=== PATIENT | male | born 1995 | race Caucasian/White ===

== ENCOUNTER → 2020-07-02 10:39 | Outpatient (BNVA) | payer OTHER, SELFPAY | PROVIDERS: Family Provider Family Medicine; PCP Family Medicine; Visit Provider Nurse Practitioner | DX: Z20.828 Contact with and (suspected) exposure to other viral communicable diseases (principal); J02.9 Acute pharyngitis, unspecified | CPT/HCPCS: 87071; 87635; 87880 ==

== ENCOUNTER 2021-06-30 02:16 | Observation (INO) | payer OTHER, SELFPAY ==
[2021-06-30] VITALS (12 sets, daily range): BP systolic 102–125; BP diastolic 60–71; PULSE 85–117; RESP 14–30; TEMP 36.4–37.7; O2SAT 92–96; BMI 27.3; BMI 27.8
--- NOTE | 2021-06-30 02:29 | ED_ITS ---
HPI - General Adult General: Chief complaint: General Medical Stated complaint: Has [place] Palsy- SOB Shaking Heart Beating Fast Time Seen by Provider: 06/30/21 02:20 History of Present Illness: HPI narrative: Mr. Stephens is a 26-year-old gentleman without significant past medical history with exception of diagnosis of Crow's palsy approximately 3 weeks ago presents emerged department due to sudden onset chills, shortness of breath, nausea, vomiting. Symptoms started approximately 3 hours prior to arrival. He cannot think of specific provoking factors. Since time of onset the course has persisted and is moderate to severe in intensity. He denies similar episodes the past. He was on a 1 week course of steroids after being diagnosed most with Crow's palsy. No other significant changes in health reported. No other specific provoking, exacerbating, or alleviating factors identified as the course of symptoms has been short. Review of Systems General: Reports: 10 or more systems reviewed and unremarkable except in HPI and below Narrative: CONSTITUTIONAL: See HPI EYES - denies pain, denies loss of vision EARS - denies ear issues. NOSE - denies congestion or rhinorrhea. THROAT - denies sore throat or difficulty swallowing. CARDIOVASCULAR - denies chest pain and palpitations RESPIRATORY -see HPI GASTROINTESTINAL -see HPI GENITOURINARY - denies dysuria or urinary frequency MUSCULOSKELETAL- denies deformity or pain SKIN - denies rashes or new changed skin lesions NEUROLOGIC -see HPI HEMATOLOGIC/LYMPHATIC - denies easy bruising or lymphadenopathy. [facility] ED PFSH: Medical History (Updated 07/02/21 @ 00:02 by ) History of Crow's palsy Surgical History (Updated 06/30/21 @ 06:22 by Yo France MD) No pertinent past surgical history Family History (Updated 06/30/21 @ 06:22 by Yo France MD) Other Diabetes Denies family history of Anesthesia complication Bleeding disorder Social History (Updated 06/30/21 @ 06:22 by Yo France MD) Smoking and tobacco status: former smoker Alcohol intake: never Lives independently: Yes Household members: spouse Marital status: Current occupational status: employed History of recent travel: No Physical Exam Narrative: EXAM NARRATIVE: GENERAL/CONSTITUTIONAL -ill-appearing. No acute distress. Eyes - PERRL, no conjunctival injection ENMT - Atraumatic external nose and ears. Moist mucous membranes NECK - supple. trachea midline CARDIOVASCULAR -tachycardic rate and regular rhythm. Peripheral pulses 2+ and equal RESPIRATORY -inferior coarse to auscultation bilaterally. Continue present. No retractions or accessory muscle use. ABDOMEN/GI -mild generalized tenderness to palpation. Nondistended. No tenderness to percussion or evidence of peritonitis MSK - Extremities without obvious deformity or tenderness to palpation SKIN - Warm, Dry. No vesicles appreciated on clinical exam. NEURO - alert and appropriately oriented. strength and sensation intact. Moves all extremities equally. Facial asymmetry/facial droop that involves both the forehead, eyelid, and lower face PSYCH - Appropriate mood and affect Course ED course: - Patient was seen and evaluated by me at bedside - Patient placed on cardiac monitors, IV access obtained - Initial evaluation notable for ill appearance, bordering nontoxic. Patient is tachypneic, tachycardic, and has decreased oxygen saturation. -Fluids ordered - Labs notable for leukocytosis - Imaging notable for ED read of chest x-ray which mild haziness/asymmetry however relatively underwhelming given the degree of patient's symptoms. -IV antibiotics given once source of infection identified based on CT read at 319 at which time patient met sepsis criteria. - Upon serial reexamination after treatment the patient was somewhat improved, patient requiring supplemental oxygen via nasal cannula - Based on patient history, evaluation, labs, and imaging as interpreted the most likely cause of the patient's condition is sepsis secondary to pneumonia - The results of ED evaluation were discussed with the patient including plan for admission due to requirement for level of care not available if discharged to prevent significant worsening/deterioration. -Hospitalist service contacted and agreed to admit the patient - Patient was admitted without further deterioration or significant events. Vital Signs: Vital signs: Vital Signs Temperature 97.9 F 07/01/21 14:19 Pulse Rate 80 07/01/21 14:19 Respiratory Rate 15 07/01/21 14:19 Blood Pressure 125/75 07/01/21 14:19 Pulse Oximetry 96 07/01/21 14:19 [facility] - General Adult Medical Records: Attestation: I reviewed the patient's medical records. Lab Data: Attestation: I reviewed the patient's lab results. Labs: Lab Results 06/30/21 06/30/21 06/30/21 Range/Units 02:50 02:50 02:50 WBC 15.9 H (4.0-10.0) 10^3/ uL RBC 5.37 H (4.1-5.3) 10^6/u L Hgb 16.5 (11.7-16.6) g/dL Hct 46.2 (42.0-52.0) % MCV 86.0 (80-94) fl MCH 30.7 (28.0-34.0) pg MCHC 35.7 (30.0-36.0) g/dL RDW 13.3 (12.1-15.1) % Plt Count 233 (130-400) 10^3/c mm MPV 10.7 H (7.4-10.4) fL Neut % (Auto) 87.4 % Lymph % (Auto) 7.6 % [place] % (Auto) 3.5 % Eos % (Auto) 0.9 % Baso % (Auto) 0.3 % Neut # (Auto) 13.94 H (1.8-7.7) 10^3/u L Lymph # (Auto) 1.2 (0.8-4.8) 10^3/u L [place] # (Auto) 0.6 (0.2-0.9) 10^3/u L Eos # (Auto) 0.1 (0.0-0.8) 10^3/u L Baso # (Auto) 0.0 (0.0-0.1) 10^3/u L Nucleated RBC % (a uto) 0 % Nucleated RBCs # 0.0 /100WBC ESR (0-10) mm/hr Specimen Type Sample Site ABG pH (7.35-7.45) ABG pCO2 (35-45) mmHg ABG pO2 (80.0-100.0) mmH g ABG HCO3 (22-26) mmol/L ABG Base Excess (-2.0-2.0) mmol/ L Marvin Test Hematocrit (42-52) % O2 Delivery Device Ditching Machine Operator ID Sodium 137 (136-145) mmol/L Potassium 4.2 (3.5-5.1) mmol/L Chloride 101 (98-107) mmol/L Carbon Dioxide 24 (22-29) mmol/L Anion Gap 16.2 (5-19) BUN 12 (6-20) mg/dL Creatinine 0.7 (0.7-1.2) mg/dL GFR Calculation 135.3 H (90-130) mL/min Glucose 120 H (65-115) mg/dL Calculated Osmolal ity 285 (285-295) mOsm/k g Lactate 2.1 (0.5-2.2) mmol/L Calcium 9.3 (8.5-10.5) mg/dL Total Bilirubin 0.5 (0.15-1.2) mg/dL AST 20 (0-40) U/L ALT 44 H (0-41) U/L Alkaline Phosphata se 75 (40-130) IU/L C-Reactive Protein (0.0-4.9) mg/L Total Protein 6.7 (6.6-8.7) g/dL Albumin 3.8 (3.5-5.2) g/dL Globulin 2.9 (1.3-4.6) g/dL Procalcitonin (0-0.5) ng/mL TSH 1.35 (0.27-4.20) uIU/ mL Urine Color (Yellow) Urine Appearance (CLEAR) Urine pH (5-7) Ur Specific Gravit y (1.005-1.030) Urine Protein (Negative) Urine Glucose (UA) (Normal) Urine Ketones (Negative) Urine Blood (Negative) Urine Nitrate (Negative) Urine Bilirubin (Negative) Prot Sulfosalicyli c Acd (Negative) Urine Urobilinogen (Negative) mg/dL Ur Leukocyte Maren ase (Negative) Influenza Type A A g (Negative) Influenza Type B A g (Negative) SARS-CoV-2 Ag (Rap id) (Negative) 06/30/21 06/30/21 06/30/21 Range/Units 02:50 02:50 02:50 WBC (4.0-10.0) 10^3/ uL RBC (4.1-5.3) 10^6/u L Hgb (11.7-16.6) g/dL Hct (42.0-52.0) % MCV (80-94) fl MCH (28.0-34.0) pg MCHC (30.0-36.0) g/dL RDW (12.1-15.1) % Plt Count (130-400) 10^3/c mm MPV (7.4-10.4) fL Neut % (Auto) % Lymph % (Auto) % [place] % (Auto) % Eos % (Auto) % Baso % (Auto) % Neut # (Auto) (1.8-7.7) 10^3/u L Lymph # (Auto) (0.8-4.8) 10^3/u L [place] # (Auto) (0.2-0.9) 10^3/u L Eos # (Auto) (0.0-0.8) 10^3/u L Baso # (Auto) (0.0-0.1) 10^3/u L Nucleated RBC % (a uto) % Nucleated RBCs # /100WBC ESR 17 H (0-10) mm/hr Specimen Type Sample Site ABG pH (7.35-7.45) ABG pCO2 (35-45) mmHg ABG pO2 (80.0-100.0) mmH g ABG HCO3 (22-26) mmol/L ABG Base Excess (-2.0-2.0) mmol/ L Marvin Test Hematocrit (42-52) % O2 Delivery Device Ditching Machine Operator ID Sodium (136-145) mmol/L Potassium (3.5-5.1) mmol/L Chloride (98-107) mmol/L Carbon Dioxide (22-29) mmol/L Anion Gap (5-19) BUN (6-20) mg/dL Creatinine (0.7-1.2) mg/dL GFR Calculation (90-130) mL/min Glucose (65-115) mg/dL Calculated Osmolal ity (285-295) mOsm/k g Lactate (0.5-2.2) mmol/L Calcium (8.5-10.5) mg/dL Total Bilirubin (0.15-1.2) mg/dL AST (0-40) U/L ALT (0-41) U/L Alkaline Phosphata se (40-130) IU/L C-Reactive Protein 29.9 H (0.0-4.9) mg/L Total Protein (6.6-8.7) g/dL Albumin (3.5-5.2) g/dL Globulin (1.3-4.6) g/dL Procalcitonin 0.15 (0-0.5) ng/mL TSH (0.27-4.20) uIU/ mL Urine Color (Yellow) Urine Appearance (CLEAR) Urine pH (5-7) Ur Specific Gravit y (1.005-1.030) Urine Protein (Negative) Urine Glucose (UA) (Normal) Urine Ketones (Negative) Urine Blood (Negative) Urine Nitrate (Negative) Urine Bilirubin (Negative) Prot Sulfosalicyli c Acd (Negative) Urine Urobilinogen (Negative) mg/dL Ur Leukocyte Maren ase (Negative) Influenza Type A A g (Negative) Influenza Type B A g (Negative) SARS-CoV-2 Ag (Rap id) Negative (Negative) 06/30/21 06/30/21 06/30/21 Range/Units 03:00 03:25 03:30 WBC (4.0-10.0) 10^3/ uL RBC (4.1-5.3) 10^6/u L Hgb (11.7-16.6) g/dL Hct (42.0-52.0) % MCV (80-94) fl MCH (28.0-34.0) pg MCHC (30.0-36.0) g/dL RDW (12.1-15.1) % Plt Count (130-400) 10^3/c mm MPV (7.4-10.4) fL Neut % (Auto) % Lymph % (Auto) % [place] % (Auto) % Eos % (Auto) % Baso % (Auto) % Neut # (Auto) (1.8-7.7) 10^3/u L Lymph # (Auto) (0.8-4.8) 10^3/u L [place] # (Auto) (0.2-0.9) 10^3/u L Eos # (Auto) (0.0-0.8) 10^3/u L Baso # (Auto) (0.0-0.1) 10^3/u L Nucleated RBC % (a uto) % Nucleated RBCs # /100WBC ESR (0-10) mm/hr Specimen Type Arterial Sample Site Radial, right ABG pH 7.44 (7.35-7.45) ABG pCO2 37.8 (35-45) mmHg ABG pO2 57.6 L (80.0-100.0) mmH g ABG HCO3 25.5 (22-26) mmol/L ABG Base Excess 1.4 (-2.0-2.0) mmol/ L Marvin Test Pos Hematocrit 47.8 (42-52) % O2 Delivery Device Room air Ditching Machine Operator ID [email or web address] Sodium (136-145) mmol/L Potassium (3.5-5.1) mmol/L Chloride (98-107) mmol/L Carbon Dioxide (22-29) mmol/L Anion Gap (5-19) BUN (6-20) mg/dL Creatinine (0.7-1.2) mg/dL GFR Calculation (90-130) mL/min Glucose (65-115) mg/dL Calculated Osmolal ity (285-295) mOsm/k g Lactate (0.5-2.2) mmol/L Calcium (8.5-10.5) mg/dL Total Bilirubin (0.15-1.2) mg/dL AST (0-40) U/L ALT (0-41) U/L Alkaline Phosphata se (40-130) IU/L C-Reactive Protein (0.0-4.9) mg/L Total Protein (6.6-8.7) g/dL Albumin (3.5-5.2) g/dL Globulin (1.3-4.6) g/dL Procalcitonin (0-0.5) ng/mL TSH (0.27-4.20) uIU/ mL Urine Color Yellow (Yellow) Urine Appearance Clear (CLEAR) Urine pH 8 H (5-7) Ur Specific Gravit y 1.005 (1.005-1.030) Urine Protein Neg (Negative) Urine Glucose (UA) Norm (Normal) Urine Ketones Negative (Negative) Urine Blood Neg (Negative) Urine Nitrate Negative (Negative) Urine Bilirubin Neg (Negative) Prot Sulfosalicyli c Acd Negative (Negative) Urine Urobilinogen Norm (Negative) mg/dL Ur Leukocyte Maren ase Negative (Negative) Influenza Type A A g Negative (Negative) Influenza Type B A g Negative (Negative) SARS-CoV-2 Ag (Rap id) (Negative) Discharge Plan Discharge Admit Provider: Yo France Condition: Stable Discharge Orders: Discharge Order (Routine); Ordered 07/01/21 Ordered By: Jerod Brito Discharge Diet: Usual diet Discharge Activity: Resume usual activity Coding Level of Care Code 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
--- NOTE | 2021-06-30 02:39 | XRR_ITS ---
PROCEDURE INFORMATION: Exam: XR Chest Exam date and time: 06/30/2021 2:39 AM Age: 26 years old Clinical indication: Dyspnea and tachypnea; Additional info: Tachycardia TECHNIQUE: Imaging protocol: XR of the chest. Views: 1 view. COMPARISON: No relevant prior studies available. FINDINGS: Lungs: There is a patchy airspace opacity in the left lower lobe, consistent with pneumonia identified in CT chest. Pleural spaces: Unremarkable. No pleural effusion. No pneumothorax. Heart/Mediastinum: Unremarkable. No cardiomegaly. Bones/joints: Unremarkable. XR/XR chest 1V portable [id number] IMPRESSION: Imaging findings of pneumonia.
[2021-06-30 03:00] LABS: Basophils % 0.3 %; Eosinophils # 0.1 10^3/uL (0.0-0.8); Eosinophils % 0.9 %; Hematocrit 46.2 % (42.0-52.0); Hemoglobin 16.5 g/dL (11.7-16.6); Lymphocytes # 1.2 10^3/uL (0.8-4.8); Lymphocytes % 7.6 %; Mean Corpuscular HGB Conc 35.7 g/dL (30.0-36.0); Mean Corpuscular Hemoglobin 30.7 pg (28.0-34.0); Mean Platelet Volume 10.7 fL (7.4-10.4); Monocytes # 0.6 10^3/uL (0.2-0.9); Monocytes % 3.5 %; Neutrophils # 13.94 10^3/uL (1.8-7.7); Neutrophils % 87.4 %; Nucleated Red Blood Cells % 0 %; Platelet Count 233 10^3/cmm (130-400); Red Blood Count 5.37 10^6/uL (4.1-5.3); Red Cell Distribution Width 13.3 % (12.1-15.1); White Blood Count 15.9 10^3/uL (4.0-10.0)
[2021-06-30] MEDS: sodium chloride 0.9% 1,000 ML 999 ML IV ×2 (03:10→04:40)
[2021-06-30 03:17] LABS: Lactate (Lactic Acid level) 2.1 mmol/L (0.5-2.2)
[2021-06-30] MEDS: ketorolac 30 mg/mL INJ 15 MG IVP (03:21)
[2021-06-30] MEDS: ondansetron 2 mg/ML SDV 2 mL 4 MG IVP (03:22)
--- NOTE | 2021-06-30 03:25 | CTR_ITS ---
PROCEDURE INFORMATION: Exam: CTA Chest With Contrast Exam date and time: 06/30/2021 3:25 AM Age: 26 years old Clinical indication: Pain and abnormal findings; Abnormal lab test; Elevated wbc; Nausea and vomiting; Abdominal pain; Epigastric; Abnormal diagnostic tests; Abnormal ekg; Shortness of breath; Additional info: Tachypnea, SOB, hypoxemia TECHNIQUE: Imaging protocol: Computed tomographic angiography of the chest with contrast. 3D rendering (Not supervised by radiologist): MIP and/or 3D reconstructed images were created by the technologist. Radiation optimization: All CT scans at this facility use at least one of these dose optimization techniques: automated exposure control; mA and/or kV adjustment per patient size (includes targeted exams where dose is matched to clinical indication); or iterative reconstruction. Contrast material: OMNI 300; Contrast volume: 95 ml; Contrast route: INTRAVENOUS (IV); COMPARISON: CR (CHEST, ) 06/30/2021 3:19 AM RADIATION DOSE METRICS: Total DLP (mGy-cm): 1283.51 FINDINGS: Pulmonary arteries: No large central pulmonary embolus identified. There is poor opacification of distal branches, limiting evaluation for small subsegmental pulmonary emboli. Aorta: Unremarkable. No aortic aneurysm. No aortic dissection. Lungs: There is bilateral patchy airspace opacities, involving mainly the left lower lobe, consistent with multifocal pneumonia. No discrete suspicious nodule or mass identified. Pleural spaces: Unremarkable. No pneumothorax. No pleural effusion. Heart: Unremarkable. No cardiomegaly. No pericardial effusion. No evidence of right heart strain. Mediastinal space: There is mild circumferential thickening of the esophageal wall, suggestive of esophagitis. Lymph nodes: Unremarkable. No enlarged lymph nodes. Bones/joints: Unremarkable. No acute fracture. Soft tissues: Unremarkable. IMPRESSION: 1. Multifocal pneumonia. Imaging features are atypical or uncommonly reported for (COVID-19) pneumonia. Alternative diagnosis should be considered. 2. No pulmonary embolus identified. PROCEDURE INFORMATION: Exam: CT Abdomen And Pelvis With Contrast Exam date and time: 06/30/2021 3:25 AM Age: 26 years old Clinical indication: Pain and abnormal findings; Abnormal lab test; Elevated wbc; Nausea and vomiting; Abdominal pain; Epigastric; Abnormal diagnostic tests; Abnormal ekg; Shortness of breath; Additional info: Tachypnea, SOB, hypoxemia TECHNIQUE: Imaging protocol: Computed tomography of the abdomen and pelvis with contrast. Radiation optimization: All CT scans at this facility use at least one of these dose optimization techniques: automated exposure control; mA and/or kV adjustment per patient size (includes targeted exams where dose is matched to clinical indication); or iterative reconstruction. Contrast material: OMNI 300; Contrast volume: 95 ml; Contrast route: INTRAVENOUS (IV); COMPARISON: CR (CHEST, ) 06/30/2021 3:19 AM RADIATION DOSE METRICS: Total DLP (mGy-cm): 1283.51 FINDINGS: Liver: The liver is diffusely decreased in density, compatible with hepatic steatosis. No discrete mass lesion identified. Gallbladder and bile ducts: Normal. No calcified stones. No ductal dilation. Pancreas: Normal. No ductal dilation. Spleen: Normal. No splenomegaly. Adrenal glands: Normal. No mass. Kidneys and ureters: Symmetric enhancement of the kidneys. Slightly lobulated contour of the kidneys, suggestive of chronic scarring. There is a subcentimeter hypodense lesion in the left mid kidney, which is too small to characterize. No hydronephrosis or nephrolithiasis. Stomach and bowel: Unremarkable. No obstruction. No mucosal thickening. Appendix: No evidence of appendicitis. Intraperitoneal space: Unremarkable. No free air. No significant fluid collection. Vasculature: Unremarkable. No abdominal aortic aneurysm. Lymph nodes: Unremarkable. No enlarged lymph nodes. Urinary bladder: Unremarkable as visualized. Reproductive: Unremarkable as visualized. Bones/joints: Unremarkable. No acute fracture. Soft tissues: Unremarkable. CT/CT angio chest w abd pel w con IMPRESSION: No acute intra-abdominal or intrapelvic pathology. COMMENTS: Consistent with the [employer]'s Incidental Findings Committee white paper (J Am Jason Radiol 2018): Any incidental renal lesion less than 1 cm or classified as too small to characterize, or any incidental cystic renal lesion characterized as simple-appearing, is likely benign. No follow-up imaging is recommended for these lesions per consensus recommendations based on imaging criteria. Radiation Dose CTDIVOL = (mGy): DLP = 1283.51~1283.51 (mGy-cm)
[2021-06-30 03:27] LABS: Alanine Aminotransferase 44 U/L (0-41); Albumin Level 3.8 g/dL (3.5-5.2); Alkaline Phosphatase 75 IU/L (40-130); Anion Gap 16.2 (5-19); Aspartate Amino Transferase 20 U/L (0-40); Blood Urea Nitrogen 12 mg/dL (6-20); Calcium 9.3 mg/dL (8.5-10.5); Carbon Dioxide 24 mmol/L (22-29); Chloride 101 mmol/L (98-107); Globulin 2.9 g/dL (1.3-4.6); Glomerular Filtration Rate 135.3 mL/min (90-130); Glucose 120 mg/dL (65-115); Osmolality Calculated 285 mOsm/kg (285-295); Potassium 4.2 mmol/L (3.5-5.1); Sodium 137 mmol/L (136-145); Thyroid Stimulating Hormone 1.35 uIU/mL (0.27-4.20); Total Bilirubin 0.5 mg/dL (0.15-1.2); Total Protein 6.7 g/dL (6.6-8.7)
[2021-06-30 03:33] LABS: ABG PCO2 37.8 mmHg (35-45); ABG PH Result 7.44 (7.35-7.45); Arterial Blood Gas Hematocrit 47.8 % (42-52); Base Excess ABG 1.4 mmol/L (-2.0-2.0); Blood Gas Allen Test Pos; Blood Gas Sample Site Radial, right; Blood Gas Sample Type Arterial; HCO3 ABG 25.5 mmol/L (22-26); Oxygen Device ROOM AIR; PO2 ABG 57.6 mmHg (80.0-100.0)
[2021-06-30 03:45] LABS: Influenza A by IFA Negative (Negative); Influenza B by IFA Negative (Negative)
[2021-06-30 03:45] LABS: SARS Covid-2 Antigen Negative (Negative)
[2021-06-30 03:51] LABS: Add Urine Microscopic? NO; Charge for UA Resulting for Rev
[2021-06-30 03:56] LABS: Procalcitonin 0.15 ng/mL (0-0.5)
[2021-06-30] MEDS: iohexol 350 mg/mL 100 mL Btl IV (04:01)
[2021-06-30 04:08] LABS: C Reactive Protein 29.9 mg/L (0.0-4.9)
[2021-06-30 04:09] LABS: Bilirubin Urine Neg (Negative); Blood Urine Neg (Negative); Glucose Urine UA Norm (Normal); Ketones Urine Negative (Negative); Leukocyte Esterase Urine Negative (Negative); Nitrate Urine Negative (Negative); Protein Urine Neg (Negative); Specific Gravity, Urine 1.005 (1.005-1.030); Sulfosalicylic Acid Urine Negative (Negative); Urine Appearance Clear (CLEAR); Urine Color Yellow (Yellow); Urobilinogen Urine Norm (Negative); pH Urine 8 (5-7)
[2021-06-30] MEDS: cefTRIAXone 1,000 MG in sodium chloride 0.9% (plus) 50 ML 100 MG IV (04:40)
[2021-06-30] MEDS: doxycycline 100 MG in sodium chloride 0.9% (plus) 100 ML IV (05:10)
--- NOTE | 2021-06-30 06:18 | P.HP_ITS ---
Providers/Chief Complaint Primary Care Provider: Bri Armas DO Chief Complaint: Has [place] Palsy- SOB Shaking Heart Beating Fast History of Present Illness Tyler Stephens is a 26 year old male with a recent past medical history of left- sided Crow's palsy, with continued inability to fully close left eye, for the last 3 weeks, no other significant medical history, who presents to [facility] due to complaints of shortness of breath. Patient tells me that he was in the regular health, he developed left-sided Crow's palsy, about 3 weeks ago, he finished a weeks of prednisone and antiviral therapy, however he still has inability to close the left eye fully. He tells me that at midnight he woke up with shortness of breath, and chills, fatigue, malaise, slight cough, and feeling nauseous. No headache, no blurry vision, no lightheaded, dizziness, no neck pain, no neck stiffness, no pain with range of motion, no new rash. Patient presents to [facility] was found to be hypoxic, put on 2 L, was tachycardic, with leukocytosis 15.9, CT of the chest showed features of atypical pneumonia, he is received sepsis bolus, Rocephin and doxy and hospitalist team was called for admission. Review of Systems Const: Reports: fever(s), chills, fatigue and malaise Eyes: Denies: change in vision or blurry vision ENMT: Denies: nasal congestion Card: Denies: chest pain or palpitations Resp: Reports: dyspnea and non-productive cough; Denies: productive cough or wheezing GI: Denies: abdominal pain, nausea, vomiting, hematemesis, diarrhea, constipation, hematochezia or melena : Denies: flank pain, difficulty urinating, dysuria or urinary frequency Musc: Denies: neck pain, back pain or extremity pain Skin/Breast: Denies: rash Neuro: Denies: headache(s), numbness in extremities, weakness in extremities, dizziness, vertigo or confusion Psych: Denies: anxiety or depression Endo: Denies: polyuria or polydipsia Medications/Allergies Home Medications Medication Instructions Recorded Confirmed Last Taken Type cetirizine 10 mg capsule 10 mg PO DAILY 03/18/20 07/02/20 Unknown History fluticasone propionate 50 1 spray INTRANASAL DAILY #16 gm 03/18/20 07/02/20 Unknown Rx mcg/actuation nasal spray,suspension Allergies Allergy/AdvReac Type Severity Reaction Status Date / Time sulfamethoxazole Allergy ALGY-Joint Verified 07/02/20 10:23 [From Bactrim] Pain trimethoprim [From Bactrim] Allergy ALGY-Joint Verified 07/02/20 10:23 Pain PFSH Acute PFSH: Medical History (Updated 06/30/21 @ 06:24 by Yo France MD) History of Crow's palsy Surgical History (Updated 06/30/21 @ 06:22 by Yo France MD) No pertinent past surgical history Family History (Updated 06/30/21 @ 06:22 by Yo France MD) Other Diabetes Denies family history of Anesthesia complication Bleeding disorder Social History (Updated 06/30/21 @ 06:22 by Yo France MD) Smoking and tobacco status: former smoker Alcohol intake: never Substance/Drug Use: never Lives independently: Yes Household members: spouse Marital status: Current occupational status: employed History of recent travel: No Vitals/I&O/Wt Last Vital Signs Temp 97.5 F L 06/30/21 02:36 Pulse 117 H 06/30/21 02:36 Resp 30 H 06/30/21 02:36 BP 119/65 06/30/21 02:36 Pulse Ox 96 06/30/21 02:36 06/29/21 06/29/21 06/30/21 14:59 22:59 06:59 Intake Total 1000 / 1000 Balance 1000 / 1000 Weight last 48 hrs Weight 79.379 kg Physical Exam Const: COMMON NORMALS: no acute distress and patient oriented x3 Eye: COMMON NORMALS: Equal, round and reactive pupils present and EOMs intact bilaterally GENERAL EYE: appearance normal, both eyes and all related structures EYELID: eyelid abnormality (Inability to completely close left eyelid) PUPIL: Yes Equal, round and reactive pupils present Neck/C-Spine: COMMON NORMALS: full ROM, no JVD and Thyroid normal GENERAL: Yes lymphadenopathy Resp: COMMON NORMALS: normal respiratory effort, No retractions and No use of accessory muscles AUSCULTATION: crackles Cardio: COMMON NORMALS: regular rate, regular rhythm, S1 normal heart sound present, S2 normal heart sound present, No gallops present (Cardio), No clicks present (Cardio) and No murmurs present (Cardio) RATE: regular rate RHYTHM: regular rhythm HEART SOUNDS: S1 normal heart sound present and S2 normal heart sound present GI: COMMON NORMALS: Normal to inspection, nondistended, normoactive bowel sounds present, Soft to palpation, non-tender and No hepatosplenomegaly present PALPATION: Yes Soft to palpation and Yes No hepatosplenomegaly present Extremity: COMMON NORMALS: normal to inspection, full ROM and no pedal edema Neuro: COMMON NORMALS: patient oriented x3, CN's II-XII intact bilaterally, moves all extremities and no focal motor deficits Psych: COMMON NORMALS: mental status grossly normal, Normal thought process present and cooperative THOUGHT PROCESS: Normal thought process present Data : 06/30/21 02:50 06/30/21 02:50 Micro: Microbiology 06/30/21 03:00 Blood Culture - Preliminary Blood SPECIMEN COLLECTED 06/30/21 03:15 Blood Culture - Preliminary Blood SPECIMEN COLLECTED A&P Assessment and plan (1) Multifocal pneumonia: -Admit to general medical floors -Covid precautions, rapid Covid negative, await Covid PCR -Start Rocephin, azithromycin -DuoNeb -Sputum cultures, blood cultures -Full code -Lovenox for DVT prophylaxis Status: Acute (2) SIRS (systemic inflammatory response syndrome): Status: Acute (3) History of Crow's palsy: -Status post treatment with antivirals, steroids -We will do neuro imaging to exclude secondary causes Status: Acute Attestations Medical Necessity Statement*: Patient requires hospitalization, outpatient with observation, for multifocal pneumonia Coding 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
--- NOTE | 2021-06-30 06:32 | CTR_ITS ---
PROCEDURE INFORMATION: Exam: CT Head Without Contrast Exam date and time: 06/30/2021 6:32 AM Age: 26 years old Clinical indication: Pain; Headache; Prior surgery; Additional info: [place], please look pay attention to parotid TECHNIQUE: Imaging protocol: Computed tomography of the head without contrast. Radiation optimization: All CT scans at this facility use at least one of these dose optimization techniques: automated exposure control; mA and/or kV adjustment per patient size (includes targeted exams where dose is matched to clinical indication); or iterative reconstruction. COMPARISON: No relevant prior studies available. RADIATION DOSE METRICS: Total DLP (mGy-cm): 847.29 FINDINGS: Brain: Normal. No hemorrhage. Unremarkable white matter. No mass effect. Cerebral ventricles: No ventriculomegaly. Paranasal sinuses: Visualized sinuses are unremarkable. No fluid levels. Mastoid air cells: Visualized mastoid air cells are well aerated. Bones/joints: Unremarkable. No acute fracture. Soft tissues: Unremarkable. CT/CT head wo con* [id number] IMPRESSION: No acute intracranial abnormality. Radiation Dose CTDIVOL = (mGy): DLP = 847.29 (mGy-cm)
[2021-06-30 07:35] LABS: Erythrocyte Sedimentation Rate 17 mm/hr (0-10)
[2021-06-30] MEDS: pantoprazole DR 40 mg Tablet PO (11:03)
[2021-06-30] MEDS: enoxaparin 40 mg/0.4 mL Syringe SUBCUT (11:04)
[2021-06-30] MEDS: azithromycin 500 MG in sodium chloride 0.9% 250 ML 250 MG IV (11:05)
[2021-06-30 11:55] LABS: HIV 1 & 2 Antibody Non-Reactive (Non-Reactiv); HIV 1 & 2 Antigen Non-Reactive (Non-Reactiv)
--- NOTE | 2021-06-30 15:54 | P.PN_ITS ---
Subjective Subjective: Interval history: Patient was seen and examined this morning, SOB has improved. Medications: Reviewed: Yes Vitals/I&O/Wt Last Vital Signs Temp 98.6 F 06/30/21 11:23 Pulse 89 06/30/21 15:12 Resp 16 06/30/21 15:12 BP 112/65 06/30/21 11:23 Pulse Ox 95 06/30/21 15:12 06/30/21 06/30/21 06/30/21 06:59 14:59 22:59 Intake Total 1000 / 1000 1400 / 1400 Balance 1000 / 1000 1400 / 1400 Weight last 48 hrs Weight 80.739 kg Weight 79.379 kg Physical Exam Const: COMMON NORMALS: patient oriented x3 HENMT: COMMON NORMALS: normocephalic, atraumatic, hearing grossly normal bilaterally and external ears normal HEAD & SCALP: normocephalic and atraumatic EXTERNAL EAR: Yes external ears normal Eye: COMMON NORMALS: no scleral icterus GENERAL EYE: appearance normal, both eyes and all related structures Chest: COMMONS NORMALS: normal inspection of the chest and normal palpation of entire chest wall CHEST: Yes Symmetrical chest wall rise Resp: COMMON NORMALS: normal respiratory effort, No retractions, No use of accessory muscles and clear to auscultation bilaterally EFFORT & INSPECTION: Yes symmetric chest movement AUSCULTATION: clear to auscultation bilaterally Cardio: COMMON NORMALS: regular rate, regular rhythm, S1 normal heart sound present, S2 normal heart sound present, No gallops present (Cardio), No murmurs present (Cardio), No rub (Cardio) and Peripheral pulses 2+ throughout RATE: regular rate RHYTHM: regular rhythm HEART SOUNDS: S1 normal heart sound present and S2 normal heart sound present PERIPHERAL PULSES: Peripheral pulses 2+ throughout GI: COMMON NORMALS: Normal to inspection, nondistended, normoactive bowel sounds present, Soft to palpation, non-tender, No hepatosplenomegaly present and no masses AUSCULTATION: Yes normoactive bowel sounds PALPATION: Yes Soft to palpation and Yes No hepatosplenomegaly present RECTAL EXAM: Yes deferred : COMMON NORMALS: Yes no CVA tenderness BLADDER/KIDNEY EXAM: Yes no CVA tenderness Back/Pelvis: COMMON NORMALS: no CVA tenderness Extremity: COMMON NORMALS: no clubbing, cyanosis or edema and no pedal edema Neuro: COMMON NORMALS: patient oriented x3 Data : 06/30/21 02:50 06/30/21 02:50 Micro: Microbiology 06/30/21 07:00 MRSA Culture - Final Nose 06/30/21 07:25 Gram Stain - Final Sputum - Expectorated Sputum 06/30/21 03:00 Blood Culture - Preliminary Blood SPECIMEN COLLECTED 06/30/21 03:15 Blood Culture - Preliminary Blood SPECIMEN COLLECTED A&P Assessment and plan (1) Multifocal pneumonia: -Admit to general medical floors -Covid precautions, rapid Covid negative, await Covid PCR -Start Rocephin, azithromycin -DuoNeb -Sputum cultures, blood cultures -Full code -Lovenox for DVT prophylaxis Status: Acute (2) SIRS (systemic inflammatory response syndrome): Status: Acute (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
[2021-06-30] MEDS: artificial tears Op Soln 15 mL Btl 1 DROP EYE-LEFT (23:09)
[2021-07-01] VITALS: BP 114/71; PULSE 91; RESP 17; TEMP 37.1; O2SAT 93
[2021-07-01 04:15] VITALS: BP 101/59; PULSE 90; RESP 12; TEMP 36.9; O2SAT 93
[2021-07-01] MEDS: cefTRIAXone 1,000 MG in sodium chloride 0.9% (plus) 50 ML 100 MG IV (04:34)
[2021-07-01] MEDS: artificial tears Op Soln 15 mL Btl 1 DROP EYE-LEFT ×2 (04:34→09:00)
[2021-07-01 05:57] LABS: Alanine Aminotransferase 29 U/L (0-41); Albumin Level 3.2 g/dL (3.5-5.2); Alkaline Phosphatase 60 IU/L (40-130); Anion Gap 12.9 (5-19); Aspartate Amino Transferase 11 U/L (0-40); Blood Urea Nitrogen 6 mg/dL (6-20); Calcium 8.3 mg/dL (8.5-10.5); Carbon Dioxide 25 mmol/L (22-29); Chloride 105 mmol/L (98-107); Globulin 2.8 g/dL (1.3-4.6); Glucose 116 mg/dL (65-115); Magnesium 1.8 mg/dL (1.7-2.3); Osmolality Calculated 287 mOsm/kg (285-295); Phosphorus 2.4 mg/dL (2.5-4.5); Potassium 3.9 mmol/L (3.5-5.1); Sodium 139 mmol/L (136-145); Total Bilirubin 0.5 mg/dL (0.15-1.2)
[2021-07-01 08:00] VITALS: BP 125/75; PULSE 83; RESP 18; TEMP 36.6; O2SAT 95
[2021-07-01] MEDS: pantoprazole DR 40 mg Tablet PO (08:58)
--- NOTE | 2021-07-01 10:03 | PC.CHAP ---
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 [] Patient/Family/Request visit [] Outpatient visit [] Follow-up visit [] Physician referral [] Code/Alert [x] Routine visit [] Staff referral [] Actively dying [] Patient sleeping [] Family support [] [] Out of room [] Palliative care [] [x] Receiving care in room [] Pre-surgical visit [] Trauma [] Long length of stay [] ICU visit [] Other: Relational/Emotional Strength [] Patient feels connected with others/family/visitors/staff [] Distress [] Loneliness/isolation [] Abandonment Spirituality of Patient [] Person of Brandie [] Attends Jehovah'S Witness of their Brandie [] Believes in Prayer [] Reads Bible or Holiness materials [] There are Spiritual issues to be addressed Character Impersonator Interventions [] Prayer [] Active listening [] Non-anxious presence [] Spiritual/emotional support [] Crisis/trauma care [] Spiritual counseling [] Bereavement support [] Provided bereavement packet [] Provided Bible/devotional materials [] Provided toy/stuffed animal, coloring book to patient or family member [] Provided Communion [] Anointing/[place] [] Salvation [x] Completed spiritual assessment [] Other: Impact on Illness or Injury [] Angry [] Fearful [] Anxious [] Often cries [] Exhaustion [] Unable to work [] Unable to attend sikhism [] Unable to walk/stand [] Unable to read [] Unable to drive [] Unable to eat/drink [] Unable to sleep [] Unable to be with family [] Patient intubated [] Other: Summary Time spent with patient
[2021-07-01 10:05] VITALS: PULSE 80; RESP 15; O2SAT 96
--- NOTE | 2021-07-01 11:08 | P.DS_ITS ---
Discharge Providers Date of Admission: 06/30/21 06:12 Date of Discharge: July 01, 2021 Attending Provider at Admission: Yo France MD Attending Provider at Discharge: Jerod Brito MD Primary Care Provider: Bri Armas DO Diagnoses at Discharge Discharge Diagnosis (1) Multifocal pneumonia: Status: Resolved (2) SIRS (systemic inflammatory response syndrome): Status: Resolved (3) History of Crow's palsy: Status: Acute Reason for Visit Reason for Visit: Has [place] Palsy- SOB Shaking Heart Beating Fast Hospital Course Hospital Course 26 year old male with a recent past medical history of left-sided Crow's palsy, 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 During the hospital stay he was managed for pneumonia, Covid rapid was negative, Covid PCR was pending. He was kept on antibiotics, CT angio chest w abd pel w con was done Multifocal pneumonia.No acute intra-abdominal or intrapelvic pathology. Blood cultures were negative, urine bacterial antigen panel was negative, MRSA nares negative. Patient responded well to the above medical management, at the time of discharge he was not complaining of any shortness of breath, no fever, no cough, he was saturating well on room. Clinical suspicion for Covid is low, still patient has been asked to self isolate himself, till the PCR result comes, of which he will be informed.Patient is being discharged in stable condition to home. Physical Exam Const: COMMON NORMALS: patient oriented x3 HENMT: COMMON NORMALS: normocephalic and atraumatic HEAD & SCALP: normocephalic and atraumatic Chest: CHEST: Yes Symmetrical chest wall rise Resp: COMMON NORMALS: normal respiratory effort, No retractions, No use of accessory muscles and clear to auscultation bilaterally EFFORT & INSPECTION: Yes symmetric chest movement AUSCULTATION: clear to auscultation bilaterally Cardio: COMMON NORMALS: regular rate, regular rhythm, S1 normal heart sound present, S2 normal heart sound present, No gallops present (Cardio), No murmurs present (Cardio), No rub (Cardio) and Peripheral pulses 2+ throughout RATE: regular rate RHYTHM: regular rhythm HEART SOUNDS: S1 normal heart sound present and S2 normal heart sound present PERIPHERAL PULSES: Peripheral pulses 2+ throughout GI: COMMON NORMALS: Normal to inspection, nondistended, normoactive bowel sounds present, Soft to palpation, non-tender, No hepatosplenomegaly present and no masses AUSCULTATION: Yes normoactive bowel sounds PALPATION: Yes Soft to palpation and Yes No hepatosplenomegaly present RECTAL EXAM: Yes deferred Extremity: COMMON NORMALS: no clubbing, cyanosis or edema and no pedal edema Neuro: COMMON NORMALS: patient oriented x3 Discharge Data Data Completed and Pending: Completed Studies During Hospitalization Category Date Time Status CT angio chest w abd pel w con Urge nt Cat Scan 06/30/21 03:[address] head wo con* 7 0450 Routine Cat Scan 06/30/21 06:32 Completed XR chest 1V ignacio ble [id number] Urgent Exams 06/30/21 02:39 Completed Pending at discharge Category Date Time Status Blood Culture Sta t Lab 06/30/21 03:00 Results Comprehensive Met abolic Panel AM [facility] BS Lab 07/02/21 04:00 Ordered Comprehensive Met abolic Panel AM [facility] Lab 07/03/21 04:00 [facility]/30[facility] 07:28 [facility] 06/30/21 10:25 Ordered Magnesium [facility] Lab 07/02/21 04:00 Ordered Magnesium [facility] Lab 07/03/21 04:00 Ordered Phosphorus AM LAB S Lab 07/02/21 04:00 Ordered Phosphorus AM LAB S Lab 07/03/21 04:00 Ordered Sputum Culture an d Gram Stain Stat Lab 06/30/21 07:25 Results Tick Panel Stat Lab 06/30/21 07:00 Received Labs from last 24 hours 07/01/21 06/30/21 05:15 07:00 Sodium 139 Potassium 3.9 Chloride 105 Carbon Dioxide 25 Anion Gap 12.9 BUN 6 Creatinine 0.8 GFR Calculation 116.0 Glucose 116 H Calculated Osmolal ity 287 Calcium 8.3 L Phosphorus 2.4 L Magnesium 1.8 Total Bilirubin 0.5 AST 11 ALT 29 Alkaline Phosphata se 60 Total Protein 6.0 L Albumin 3.2 L Globulin 2.8 HIV 1&2 Ab & HIV 1 Ag Non-reactive HIV 1&2 Antibody Non-reactive Vitals: Last Vital Signs Temp 97.9 F 07/01/21 08:00 Pulse 80 07/01/21 10:05 Resp 15 07/01/21 10:05 BP 125/75 07/01/21 08:00 Pulse Ox 96 07/01/21 10:05 Discharge Plan Discharge Patient Disposition: Home Condition: Stable Prescriptions: Continued ibuprofen 200 mg Tablet 200 mg PO Q6H PRN (Reason: pain/fever) RF: 0 levocetirizine 5 mg tablet 5 mg PO DAILY RF: 0 Discharge Orders: Discharge Order (Routine); Ordered 07/01/21 Ordered By: Jerod Brito Referrals: Bri Armas DO [Primary Care Provider] - 07/03/21 9:15 am Discharge Diet: Usual diet Discharge Activity: Resume usual activity Patient Instructions: Viral Pneumonia (DC), Opioid Safety Stand Alone Forms: Work/School Release Discharge Attestations Time Spent in Discharge Care*: less than 30 min Specific Discharge Activities: educating patient, educating and/or supporting family/caregiver, discussing with case management assistant/social workers/dc planners, documenting/other paperwork and evaluating patient/reviewing data Status at Discharge: Cognitive status at discharge: cognitively intact , Behavioral status at discharge: cooperative , Functional status at discharge: independent ambulation Overall status at discharge: patient is back to baseline Quality Metrics Clinical Quality Measures During this hospital stay, did patient experience: None Coding Level of Care Code Acute Chg FW DC note Diagnoses Multifocal pneumonia J18.9 SIRS (systemic inflammatory response syndrome) R65.10 History of Crow's palsy Z86.69
[2021-07-01 14:15] LABS: Coronavirus Test Green County Not Detected
[2021-07-01 14:19] VITALS: BP 125/75; PULSE 80; RESP 15; TEMP 36.6; O2SAT 96
[2021-07-01 15:07] LABS: Lyme AB Screen <0.90 index
--- NOTE | 2021-07-02 09:01 | PC.SOCIAL ---
discharge follow up call made. patient reports he is feeling good. denies any needs or concerns. no new medications added or changes to current medications. patient is aware of follow up appointment with pcp.
[2021-07-04 17:38] LABS: E. Chaffeensis AB IGG <1:64; E. Chaffeensis AB IGM <1:20; RMSF IGG NOT DETECTED; RMSF IGM NOT DETECTED
== END 2021-07-01 14:20 | disposition home or self-care (01) ==
LOC: ER 07:44 → MEDSURG 08:57
PROVIDERS: Admitting Provider Family Medicine; Emergency Provider Emergency Medicine; PCP Family Medicine; Visit Provider Internal Medicine
DX: J18.9 Pneumonia, unspecified organism (principal); R65.10 Systemic inflammatory response syndrome (SIRS) of non-infectious origin without acute organ dysfunction; Z86.69 Personal history of other diseases of the nervous system and sense organs; Z87.891 Personal history of nicotine dependence
CPT/HCPCS: 36415; 36600; 70450; 71045; 71275; 74177; 80053; 81003; 82803; 83605; 83735; 84100; 84145; 84443; 85025; 85651; 86140; 86403; 86618; 86666; 86757; 87040; 87070; 87205; 87426; 87635; 87641; 87804; 87806; 94664; 96365; 96367; 96372; 96375; 99285; G0378; J0456; J0696; J1650; J1885; J2405; J3490; J7030; J7050; Q9967

== ENCOUNTER 2022-04-03 22:43 | Emergency (ER) | payer OTHER, SELFPAY ==
[2022-04-03 22:46] VITALS: BP 127/71; PULSE 116; RESP 16; TEMP 37.8; O2SAT 93
--- NOTE | 2022-04-04 00:01 | XRR_ITS ---
PROCEDURE INFORMATION: Exam: XR Chest Exam date and time: 04/04/2022 12:44 AM Age: 27 years old Clinical indication: Cough and fever; Additional info: Cough, congestion, fevers TECHNIQUE: Imaging protocol: Radiologic exam of the chest. Views: 1 view. COMPARISON: CR (CHEST, ) 06/30/2021 3:19 AM FINDINGS: Lungs: Unremarkable. No consolidation. Pleural spaces: Unremarkable. No pleural effusion. No pneumothorax. Heart/Mediastinum: Unremarkable. No cardiomegaly. Bones/joints: Unremarkable. XR/XR chest 1V portable [id number] IMPRESSION: No acute findings.
[2022-04-04 01:20] VITALS: BP 143/71; PULSE 104; RESP 20; TEMP 38; O2SAT 93
[2022-04-04 01:21] LABS: Basophils % 0.2 %; Eosinophils # 0.1 10^3/uL (0.0-0.8); Eosinophils % 0.4 %; Hematocrit 44.8 % (42.0-52.0); Hemoglobin 16.2 g/dL (11.7-16.6); Lymphocytes # 0.9 10^3/uL (0.8-4.8); Lymphocytes % 6.2 %; Mean Corpuscular HGB Conc 36.2 g/dL (30.0-36.0); Mean Corpuscular Hemoglobin 30.3 pg (28.0-34.0); Mean Corpuscular Volume 83.9 fl (80-94); Mean Platelet Volume 10.9 fL (7.4-10.4); Monocytes % 7.2 %; Neutrophils # 11.92 10^3/uL (1.8-7.7); Neutrophils % 85.6 %; Nucleated Red Blood Cells % 0 %; Platelet Count 231 10^3/cmm (130-400); Red Blood Count 5.34 10^6/uL (4.1-5.3); Red Cell Distribution Width 12.4 % (12.1-15.1); White Blood Count 13.9 10^3/uL (4.0-10.0)
[2022-04-04] MEDS: acetaminophen 500 mg Tablet 1000 MG PO (01:29)
--- NOTE | 2022-04-04 01:36 | W.ED.SOB ---
Documented by User: PABLITO Foster 04/04/22 01:41 HPI - SOB/Dyspnea General: Chief Complaint: Shortness of Breath/Dyspnea Stated Complaint: SOB Time Seen by Provider: 04/04/22 01:16 Source: patient and family Mode of arrival: ambulatory Limitations: no limitations History of Present Illness: HPI Narrative: Patient is a 27-year-old male who presents to ED today with a complaint of upper respiratory symptoms and shortness of breath. Patient states he has had nasal congestion, runny nose, sore throat, productive cough, and shortness of breath over the past 7 days. Several members of his family have been sick recently but they have all fully recovered. Patient states he has been running fevers as high as 101. He states he took a home rapid COVID test yesterday evening that was negative. Patient states he has no underlying pulmonary or cardiac abnormalities. He does report one previous history of pneumonia and states this feels similar. Patient denies headache, neck pain, abdominal pain, vomiting or diarrhea. No rash. MD elicited complaint: shortness of breath and cough Onset (ago): day(s) Timing: constant Severity: moderate Exacerbating factors: exertion Relieving factors: nothing Associated symptoms: Reports chest congestion, chest pain and fever(s); Deny abdominal pain, extremity pain, hemoptysis, lightheadedness, nausea, orthopnea, palpitations, syncope or vomiting Treatment prior to arrival: none Related Data: Home oxygen amount: none Review of Systems Const: Reports: fever(s), body aches and fatigue ENMT: Reports: throat pain, odynophagia, nasal discharge and nasal congestion; Denies: ear or mastoid pain, ear discharge or sinus pain Card: Reports: chest pain and dyspnea on exertion; Denies: palpitations, irregular heart rhythm, edema, swelling of feet/ankles, lightheadedness, syncope, pre-syncope, orthopnea, leg pain with exertion or acrocyanosis Resp: Reports: dyspnea, productive cough, pain on inspiration and chest congestion; Denies: wheezing, stridor or hemoptysis GI: Denies: abdominal pain, nausea, vomiting or diarrhea Musc: Denies: neck pain, back pain, extremity pain or joint pain Skin/Breast: Denies: rash Neuro: Denies: headache(s), numbness in extremities, weakness in extremities or sensory changes PFSH ED PFSH: Medical History Allergic rhinitis History of Crow's palsy SIRS (systemic inflammatory response syndrome) Viral pneumonia Wound of gluteal cleft Surgical History No pertinent past surgical history Family History Other Diabetes Denies family history of Anesthesia complication Bleeding disorder Social History Smoking and tobacco status: former smoker Alcohol intake: never Lives independently: Yes Household members: spouse Marital status: Current occupational status: employed History of recent travel: No Physical Exam Const: COMMON NORMALS: no acute distress, patient oriented x3 and alert GENERAL APPEARANCE: cooperative and ill appearing ORIENTATION/CONSCIOUSNESS: Yes awake, Yes oriented to person, Yes oriented to place and Yes oriented to time OTHER: feels warmer than documented temp HENMT: COMMON NORMALS: normocephalic and atraumatic HEAD & SCALP: normal to inspection, normocephalic and atraumatic FACE & SINUS: normal facial exam MOUTH: Normal oral and palatal mucosa present, lip normal and tongue normal THROAT: posterior oropharynx normal, tonsils normal and uvula midline Eye: GENERAL EYE: appearance normal, both eyes and all related structures and normal light reflex DIRECT OPHTHALMOSCOPY: Yes normal light reflex Neck/C-Spine: COMMON NORMALS: full ROM and no lymphadenopathy GENERAL: Yes normal visual inspection Resp: EFFORT & INSPECTION: No grunting, No stridor, No Actively coughing and No retractions AUSCULTATION: rales and wheezes Cardio: COMMON NORMALS: regular rhythm RATE: tachycardic RHYTHM: regular rhythm GI: COMMON NORMALS: Normal to inspection, nondistended, normoactive bowel sounds present, Soft to palpation and non-tender PALPATION: Yes Soft to palpation Extremity: COMMON NORMALS: normal to inspection, capillary refill normal, no joint enlargement, no clubbing, cyanosis or edema, no calf tenderness and no pedal edema Neuro: PAIGE COMA SCALE: document GCS findings Paige coma scale eye opening: Spontaneous [place] coma scale verbal response: Orientated Paige coma scale motor response: Obey commands Paige coma scale total score: 15 COMMON NORMALS: patient oriented x3, moves all extremities, no focal motor deficits and no sensory deficits noted SENSORIUM/ORIENTATION: Yes alert, Yes oriented to person, Yes oriented to place and Yes oriented to time Skin: COMMON NORMALS: no rashes or lesions noted GENERAL SKIN EXAM: no rashes or lesions noted Course Vital Signs: Vital signs: Vital Signs Temperature 98.3 F 04/04/22 05:37 Pulse Rate 103 H 04/04/22 05:37 Respiratory Rate 20 H 04/04/22 05:37 Blood Pressure 138/82 04/04/22 05:37 Pulse Oximetry 95 04/04/22 05:37 MDM - SOB/Dyspnea Lab Data : 04/04/22 01:13 04/04/22 01:13 Labs/Radiology: Radiology Impressions Chest X-Ray 04/04/22 00:01 IMPRESSION: No acute findings. Chest CTA 04/04/22 02:19 IMPRESSION: 1. No pulmonary artery embolism identified. 2. Trace bibasilar atelectasis or scar. Laboratory Results WBC 13.9 10^3/uL (4.0-10.0) H 04/04/22 01:13 RBC 5.34 10^6/uL (4.1-5.3) H 04/04/22 01:13 Hgb 16.2 g/dL (11.7-16.6) 04/04/22 01:13 Hct 44.8 % (42.0-52.0) 04/04/22 01:13 MCV 83.9 fl (80-94) 04/04/22 01:13 MCH 30.3 pg (28.0-34.0) 04/04/22 01:13 MCHC 36.2 g/dL (30.0-36.0) H 04/04/22 01:13 RDW 12.4 % (12.1-15.1) 04/04/22 01:13 Plt Count 231 10^3/cmm (130-400) 04/04/22 01:13 MPV 10.9 fL (7.4-10.4) H 04/04/22 01:13 Neut % (Auto) 85.6 % 04/04/22 01:13 Lymph % (Auto) 6.2 % 04/04/22 01:13 Beadle % (Auto) 7.2 % 04/04/22 01:13 Eos % (Auto) 0.4 % 04/04/22 01:13 Baso % (Auto) 0.2 % 04/04/22 01:13 Neut # (Auto) 11.92 10^3/uL (1.8-7.7) H 04/04/22 01:13 Lymph # (Auto) 0.9 10^3/uL (0.8-4.8) 04/04/22 01:13 Beadle # (Auto) 1.0 10^3/uL (0.2-0.9) H 04/04/22 01:13 Eos # (Auto) 0.1 10^3/uL (0.0-0.8) 04/04/22 01:13 Baso # (Auto) 0.0 10^3/uL (0.0-0.1) 04/04/22 01:13 Nucleated RBC % (auto) 0 % 04/04/22 01:13 Nucleated RBCs # 0.0 /100WBC 04/04/22 01:13 Sodium 136 mmol/L (136-145) 04/04/22 01:13 Potassium 3.9 mmol/L (3.5-5.1) 04/04/22 01:13 Chloride 101 mmol/L (98-107) 04/04/22 01:13 Carbon Dioxide 23 mmol/L (22-29) 04/04/22 01:13 Anion Gap 15.9 (5-19) 04/04/22 01:13 BUN 11 mg/dL (6-20) 04/04/22 01:13 Creatinine 0.9 mg/dL (0.7-1.2) 04/04/22 01:13 GFR Calculation 100.5 mL/min (90-130) 04/04/22 01:13 Glucose 109 mg/dL (65-115) 04/04/22 01:13 Calculated Osmolality 282 mOsm/kg (285-295) L 04/04/22 01:13 Lactic Acid 0.8 mmol/L (0.5-2.2) 04/04/22 01:13 Calcium 9.0 mg/dL (8.5-10.5) 04/04/22 01:13 Total Bilirubin 0.5 mg/dL (0.15-1.2) 04/04/22 01:13 AST 18 U/L (0-40) 04/04/22 01:13 ALT 28 U/L (0-41) 04/04/22 01:13 Alkaline Phosphatase 79 IU/L (40-130) 04/04/22 01:13 Total Protein 8.1 g/dL (6.6-8.7) 04/04/22 01:13 Albumin 4.6 g/dL (3.5-5.2) 04/04/22 01:13 Globulin 3.5 g/dL (1.3-4.6) 04/04/22 01:13 Procalcitonin 0.10 ng/mL (0-0.5) 04/04/22 01:13 Nasal Influ A H1 2009 PCR Not detected (NOT DETECT) 04/04/22 01:13 Adenovirus (PCR) Not detected (NOT DETECT) 04/04/22 01:13 C. pneumoniae DNA (PCR) Not detected (NOT DETECT) 04/04/22 01:13 Coronavirus 229E (PCR) Not detected (NOT DETECT) 04/04/22 01:13 Human Metapneumovir PCR Not detected (NOT DETECT) 04/04/22 01:13 Influenza A (H1) PCR Not detected (NOT DETECT) 04/04/22 01:13 Influenza A (H3) PCR Not detected (NOT DETECT) 04/04/22 01:13 Influenza Type A (PCR) Not detected (NOT DETECT) 04/04/22 01:13 Influenza Type B (PCR) Not detected (NOT DETECT) 04/04/22 01:13 M. pneumoniae (PCR) Not detected (NOT DETECT) 04/04/22 01:13 Parainfluenza 1 (PCR) Not detected (NOT DETECT) 04/04/22 01:13 Parainfluenza 2 (PCR) Not detected (NOT DETECT) 04/04/22 01:13 Parainfluenza 3 (PCR) Not detected (NOT DETECT) 04/04/22 01:13 Parainfluenza 4 (PCR) Not detected (NOT DETECT) 04/04/22 01:13 RSV Type A (PCR) Not detected (NOT DETECT) 04/04/22 01:13 RSV Type B (PCR) Not detected (NOT DETECT) 04/04/22 01:13 Entero/Rhino (PCR) Detected (NOT DETECT) A 04/04/22 01:13 SARS-CoV-2 (PCR) Not detected (NOT DETECT) 04/04/22 01:13 Discharge Plan Discharge Patient Disposition: Home Clinical Impression: Acute bronchitis with wheezing, Acute bronchitis due to Rhinovirus Condition: Stable Prescriptions: New Medrol (Oni) 4 mg tablets,dose pack See Rx Instructions .ROUTE .COMPLEX Qty: 21 0RF Rx Instructions: orally per package directions albuterol sulfate 90 mcg/actuation HFA aerosol inhaler 2 inh INHALATION Q4H PRN (Reason: shortness of breath or wheezing) Qty: 6.7 1RF No Action ibuprofen 200 mg Tablet 200 mg PO Q6H PRN (Reason: pain/fever) 0RF levocetirizine 5 mg tablet 5 mg PO DAILY 0RF Discharge Orders: Discharge ED (Routine); Ordered 04/04/22 Ordered By: Sixto Swift Referrals: Bri Armas DO [Primary Care Provider] - 1-3 days Patient Instructions: Acute Bronchitis (ED) Activity Restrictions/Additional Instructions: Use the inhaler every 4 hours while awake for the next 48 hours, then as needed. Return for worsening shortness of breath despite treatment, vomiting liquids or medications, any other concerning symptoms. Coding Level of Care Code ED Surgical Sales Representative for Chg Fwd Exam Comprehensive Documented by User: Sixto Swift DO 04/04/22 05:53 HPI - SOB/Dyspnea General: Chief Complaint: Shortness of Breath/Dyspnea Stated Complaint: SOB Time Seen by Provider: 04/04/22 01:16 PFSH ED PFSH: Medical History Allergic rhinitis History of Crow's palsy SIRS (systemic inflammatory response syndrome) Viral pneumonia Wound of gluteal cleft Surgical History No pertinent past surgical history Family History Other Diabetes Denies family history of Anesthesia complication Bleeding disorder Social History Smoking and tobacco status: former smoker Alcohol intake: never Lives independently: Yes Household members: spouse Marital status: Current occupational status: employed History of recent travel: No Physical Exam Neuro: PAIGE COMA SCALE: document GCS findings [place] coma scale total score: 15 Course Vital Signs: Vital signs: Vital Signs Temperature 98.3 F 04/04/22 05:37 Pulse Rate 103 H 04/04/22 05:37 Respiratory Rate 20 H 04/04/22 05:37 Blood Pressure 138/82 04/04/22 05:37 Pulse Oximetry 95 04/04/22 05:37 MDM - SOB/Dyspnea Medical Decision Making This patient was originally seen by Mrs. To?FORTUNATO Stephens.? I agree with her history, evaluation, and treatment. This patient was checked out to me at shift change. He has a white blood cell count of 14. BMP is normal. Liver enzymes are essentially normal. By PCR, he has rhinovirus. CTA was performed due to mild hypoxia and tachycardia. It is negative. He is given nebulizer treatments as well as Solu-Medrol here with some improvement. He will be allowed home. Lab Data : 04/04/22 01:13 04/04/22 01:13 Labs/Radiology: Radiology Impressions Chest X-Ray 04/04/22 00:01 IMPRESSION: No acute findings. Chest CTA 04/04/22 02:19 IMPRESSION: 1. No pulmonary artery embolism identified. 2. Trace bibasilar atelectasis or scar. Laboratory Results WBC 13.9 10^3/uL (4.0-10.0) H 04/04/22 01:13 RBC 5.34 10^6/uL (4.1-5.3) H 04/04/22 01:13 Hgb 16.2 g/dL (11.7-16.6) 04/04/22 01:13 Hct 44.8 % (42.0-52.0) 04/04/22 01:13 MCV 83.9 fl (80-94) 04/04/22 01:13 MCH 30.3 pg (28.0-34.0) 04/04/22 01:13 MCHC 36.2 g/dL (30.0-36.0) H 04/04/22 01:13 RDW 12.4 % (12.1-15.1) 04/04/22 01:13 Plt Count 231 10^3/cmm (130-400) 04/04/22 01:13 MPV 10.9 fL (7.4-10.4) H 04/04/22 01:13 Neut % (Auto) 85.6 % 04/04/22 01:13 Lymph % (Auto) 6.2 % 04/04/22 01:13 Beadle % (Auto) 7.2 % 04/04/22 01:13 Eos % (Auto) 0.4 % 04/04/22 01:13 Baso % (Auto) 0.2 % 04/04/22 01:13 Neut # (Auto) 11.92 10^3/uL (1.8-7.7) H 04/04/22 01:13 Lymph # (Auto) 0.9 10^3/uL (0.8-4.8) 04/04/22 01:13 [place]eadle # (Auto) 1.0 10^3/uL (0.2-0.9) H 04/04/22 01:13 Eos # (Auto) 0.1 10^3/uL (0.0-0.8) 04/04/22 01:13 Baso # (Auto) 0.0 10^3/uL (0.0-0.1) 04/04/22 01:13 Nucleated RBC % (auto) 0 % 04/04/22 01:13 Nucleated RBCs # 0.0 /100WBC 04/04/22 01:13 Sodium 136 mmol/L (136-145) 04/04/22 01:13 Potassium 3.9 mmol/L (3.5-5.1) 04/04/22 01:13 Chloride 101 mmol/L (98-107) 04/04/22 01:13 Carbon Dioxide 23 mmol/L (22-29) 04/04/22 01:13 Anion Gap 15.9 (5-19) 04/04/22 01:13 BUN 11 mg/dL (6-20) 04/04/22 01:13 Creatinine 0.9 mg/dL (0.7-1.2) 04/04/22 01:13 GFR Calculation 100.5 mL/min (90-130) 04/04/22 01:13 Glucose 109 mg/dL (65-115) 04/04/22 01:13 Calculated Osmolality 282 mOsm/kg (285-295) L 04/04/22 01:13 Lactic Acid 0.8 mmol/L (0.5-2.2) 04/04/22 01:13 Calcium 9.0 mg/dL (8.5-10.5) 04/04/22 01:13 Total Bilirubin 0.5 mg/dL (0.15-1.2) 04/04/22 01:13 AST 18 U/L (0-40) 04/04/22 01:13 ALT 28 U/L (0-41) 04/04/22 01:13 Alkaline Phosphatase 79 IU/L (40-130) 04/04/22 01:13 Total Protein 8.1 g/dL (6.6-8.7) 04/04/22 01:13 Albumin 4.6 g/dL (3.5-5.2) 04/04/22 01:13 Globulin 3.5 g/dL (1.3-4.6) 04/04/22 01:13 Procalcitonin 0.10 ng/mL (0-0.5) 04/04/22 01:13 Nasal Influ A H1 2008 PCR Not detected (NOT DETECT) 04/04/22 01:13 Adenovirus (PCR) Not detected (NOT DETECT) 04/04/22 01:13 C. pneumoniae DNA (PCR) Not detected (NOT DETECT) 04/04/22 01:13 Coronavirus 229E (PCR) Not detected (NOT DETECT) 04/04/22 01:13 Human Metapneumovir PCR Not detected (NOT DETECT) 04/04/22 01:13 Influenza A (H1) PCR Not detected (NOT DETECT) 04/04/22 01:13 Influenza A (H3) PCR Not detected (NOT DETECT) 04/04/22 01:13 Influenza Type A (PCR) Not detected (NOT DETECT) 04/04/22 01:13 Influenza Type B (PCR) Not detected (NOT DETECT) 04/04/22 01:13 M. pneumoniae (PCR) Not detected (NOT DETECT) 04/04/22 01:13 Parainfluenza 1 (PCR) Not detected (NOT DETECT) 04/04/22 01:13 Parainfluenza 2 (PCR) Not detected (NOT DETECT) 04/04/22 01:13 Parainfluenza 3 (PCR) Not detected (NOT DETECT) 04/04/22 01:13 Parainfluenza 4 (PCR) Not detected (NOT DETECT) 04/04/22 01:13 RSV Type A (PCR) Not detected (NOT DETECT) 04/04/22 01:13 RSV Type B (PCR) Not detected (NOT DETECT) 04/04/22 01:13 Entero/Rhino (PCR) Detected (NOT DETECT) A 04/04/22 01:13 SARS-CoV-2 (PCR) Not detected (NOT DETECT) 04/04/22 01:13 Discharge Plan Discharge Patient Disposition: Home Clinical Impression: Acute bronchitis with wheezing, Acute bronchitis due to Rhinovirus Condition: Stable Prescriptions: New Medrol (Oni) 4 mg tablets,dose pack See Rx Instructions .ROUTE .COMPLEX Qty: 21 0RF Rx Instructions: orally per package directions albuterol sulfate 90 mcg/actuation HFA aerosol inhaler 2 inh INHALATION Q4H PRN (Reason: shortness of breath or wheezing) Qty: 6.7 1RF No Action ibuprofen 200 mg Tablet 200 mg PO Q6H PRN (Reason: pain/fever) 0RF levocetirizine 5 mg tablet 5 mg PO DAILY 0RF Discharge Orders: Discharge ED (Routine); Ordered 04/04/22 Ordered By: Sixto Swift Referrals: Bri Armas DO [Primary Care Provider] - 1-3 days Patient Instructions: Acute Bronchitis (ED) Activity Restrictions/Additional Instructions: Use the inhaler every 4 hours while awake for the next 48 hours, then as needed. Return for worsening shortness of breath despite treatment, vomiting liquids or medications, any other concerning symptoms. Coding Level of Care Code ED Surgical Sales Representative for Cara Fwd Exam Comprehensive
[2022-04-04 01:41] LABS: Alanine Aminotransferase 28 U/L (0-41); Albumin Level 4.6 g/dL (3.5-5.2); Alkaline Phosphatase 79 IU/L (40-130); Anion Gap 15.9 (5-19); Aspartate Amino Transferase 18 U/L (0-40); Blood Urea Nitrogen 11 mg/dL (6-20); Carbon Dioxide 23 mmol/L (22-29); Chloride 101 mmol/L (98-107); Globulin 3.5 g/dL (1.3-4.6); Glomerular Filtration Rate 100.5 mL/min (90-130); Glucose 109 mg/dL (65-115); Osmolality Calculated 282 mOsm/kg (285-295); Potassium 3.9 mmol/L (3.5-5.1); Sodium 136 mmol/L (136-145); Total Bilirubin 0.5 mg/dL (0.15-1.2); Total Protein 8.1 g/dL (6.6-8.7)
[2022-04-04 01:42] LABS: Lactic Sepsis W/Reflex 0.8 mmol/L (0.5-2.2)
[2022-04-04] MEDS: ipratropium-albuterol 3 mL Neb INHALATION (01:52)
[2022-04-04 01:53] VITALS: PULSE 111; RESP 19; O2SAT 94
[2022-04-04 02:00] VITALS: PULSE 113
--- NOTE | 2022-04-04 02:19 | CTR_ITS ---
PROCEDURE INFORMATION: Exam: CTA Chest With Contrast Exam date and time: 04/04/2022 3:16 AM Age: 27 years old Clinical indication: Fever and shortness of breath; Additional info: SOB, hypoxia TECHNIQUE: Imaging protocol: Computed tomographic angiography of the chest with contrast. 3D rendering (Not supervised by radiologist): MIP and/or 3D reconstructed images were created by the technologist. Total images: 1 Radiation optimization: All CT scans at this facility use at least one of these dose optimization techniques: automated exposure control; mA and/or kV adjustment per patient size (includes targeted exams where dose is matched to clinical indication); or iterative reconstruction. Contrast material: OMNI 350; Contrast volume: 100 ml; Contrast route: INTRAVENOUS (IV); COMPARISON: CT angio chest w abd pel w con 06/30/2021 3:53 AM RADIATION DOSE METRICS: Total DLP (mGy-cm): 577.87 FINDINGS: Pulmonary arteries: Pulmonary artery evaluation of good technical quality with no pulmonary artery embolism identified. Aorta: Unremarkable. No aortic aneurysm. No aortic dissection. Lungs: Trace bibasilar atelectasis or scar. Pleural spaces: Unremarkable. No pneumothorax. No pleural effusion. Heart: No coronary arterial calcification is detected. Lymph nodes: Unremarkable. No enlarged lymph nodes. Bones/joints: Unremarkable. No acute fracture. Soft tissues: Unremarkable. CT/CT angio chest PE protcl [id number] IMPRESSION: 1. No pulmonary artery embolism identified. 2. Trace bibasilar atelectasis or scar.
[2022-04-04 03:09] LABS: Adenovirus Not Detected (NOT DETECT); Chlamydia Pneumoniae Not Detected (NOT DETECT); Coronavirus 229E,HKU1,NL63,OC4 Not Detected (NOT DETECT); Human Metapneumovirus Not Detected (NOT DETECT); Human Rhinovirus/Enterovirus Detected (NOT DETECT); Influenza A Not Detected (NOT DETECT); Influenza A H1 Not Detected (NOT DETECT); Influenza A H1-2009 Not Detected (NOT DETECT); Influenza A H3 Not Detected (NOT DETECT); Influenza B Not Detected (NOT DETECT); Mycoplasma Pneumoniae Not Detected (NOT DETECT); Parainfluenza Virus Type 1 Not Detected (NOT DETECT); Parainfluenza Virus Type 2 Not Detected (NOT DETECT); Parainfluenza Virus Type 3 Not Detected (NOT DETECT); Parainfluenza Virus Type 4 Not Detected (NOT DETECT); Respiratory Syncytial Virus A Not Detected (NOT DETECT); Respiratory Syncytial Virus B Not Detected (NOT DETECT); SARS-COV-2 Not Detected (NOT DETECT)
[2022-04-04] MEDS: iohexol 350 mg/mL 100 mL Btl IV (03:25)
[2022-04-04 03:57] VITALS: BP 126/67; PULSE 96; RESP 16; O2SAT 96
[2022-04-04 05:37] VITALS: BP 138/82; PULSE 103; RESP 20; TEMP 36.8; O2SAT 95
[2022-04-04 06:16] VITALS: BP 130/76; PULSE 99; RESP 22; TEMP 36.7; O2SAT 92
== END 2022-04-04 06:21 | disposition home or self-care (01) ==
PROVIDERS: Physician Assistant; Emergency Provider Emergency Medicine; PCP Family Medicine
DX: J20.6 Acute bronchitis due to rhinovirus (principal)
CPT/HCPCS: 71045; 71275; 80053; 83605; 84145; 85025; 87486; 87581; 87633; 94640; 96374; 99284; J2930; Q9967